=== PATIENT | female | born 1975 | race Two or more races ===

== ENCOUNTER 2024-05-19 07:47 | Emergency (ER) | payer MEDICAID, SELFPAY ==
--- NOTE | 2024-05-19 07:55 | PD.EDANX ---
ED Anxiety RME/HPI General Chief Complaint: Anxiety Stated Complaint: Feeling anxious, depressed Time Seen by Provider: 05/19/24 07:49 Arrival date/time: 05/19/24 07:47 RME / HPI RME / HPI narrative: This section includes all my notes and documentations, including HPI, PE, MDM, Procedure Notes, and PLAN. Rajendra Pro MD HPI: 48 year old female with history of mental health hospitalization due to psychosis in 2016, diagnosed with being on the schizophrenia spectrum , bipolar disorder, anxiety, PTSD presents to the ED for evaluation of feeling anxious. States she feels the psychotic break coming although not quite there yet. States she has had increased stress, anxiety, and on occasional start of delusions although unable to describe more details. Denies suicidal or homicidal ideations or hallucinations. Not currently taking prescription medications, for many years. Does not wish inpatient treatment or emergency usp. Requests prescriptions for antipsychotic and anxiety medications to prevent psychosis she had and helped many years ago. No other complaints reported. ROS: Respiratory: negative except as documented in HPI. Gastrointestinal: negative except as documented in HPI. Genitourinary: negative except as documented in HPI. Musculoskeletal: negative except as documented in HPI. Skin: negative except as documented in HPI. Neurological: negative except as documented in HPI. Physical Exam: General: Alert and oriented. No acute distress. Eyes: Conjunctivae and lids clear. ENT: No nasal congestion. Neck: Supple. Lungs: No respiratory distress. Skin: Warm and dry. Neuro: Alert and oriented X 3. Will prescribe Haldol and Xanax until she can see her private doctors. Patient does not meet the criteria for emergency usp. Based on my best medical judgment, made decision no further evaluation or treatment indicated at this time. Patient understands and agrees to the discharge instructions customized and printed, see below. Discharge Instructions from Dr. Pro: 1. As you requested, we will try to help you prevent acute psychosis you experienced in 2016. 2. You don't meet the criteria for emergency usp in psychiatric unit against your will.? Because you have no thoughts of hurting yourself or others.? And there are no signs of acute psychosis (loss of touch with reality) which can potentially be harmful to you and others at this moment today. 3. Since you requested prescriptions for anxiety and psychosis which helped you in 2016, you are prescribed Haldol and Xanax. 4. See a private doctor on 05/20/2024 for recheck and further care. Ask to help you stay healthy both physically and mentally.? And help to receive all services available to you, including referral to see mental health specialists. 5. Seek immediate medical care (you can call 911 any time) with thoughts of hurting yourself or similar delusions you had when he had psychosis in 2016 or with any concerns. Related Data Home Medications ?Medication ?Instructions ?Recorded ?Confirmed carvedilol 6.25 mg tablet 6.25 mg PO BID 01/28/23 01/28/23 gabapentin 600 mg tablet 600 mg PO TID PRN Pain 01/28/23 01/28/23 tapinarof 1 % topical cream (Vtama) 1 applic topical QDAY 01/28/23 01/28/23 venlafaxine 25 mg tablet 25 mg PO QDAY 01/28/23 01/28/23 Previous Rx's ?Medication ?Instructions ?Recorded alprazolam 0.5 mg tablet (Xanax) 0.5 mg PO BID PRN anxiety #10 tabs 05/19/24 haloperidol 5 mg tablet 5 mg PO .bedtime #30 tabs 05/19/24 Allergies Allergy/AdvReac Type Severity Reaction Status Date / Time cefaclor Allergy Intermediate Hives Verified 06/20/22 22:25 Erythromycin Lactobionate Allergy Mild STOMACH Verified 06/20/22 22:25 UPSET metoclopramide [From Reglan] Allergy Agitated Verified 06/19/22 17:28 steroids Allergy Unknown Irritable Uncoded 06/19/22 17:28 Review of Systems Review of Systems Systems Reviewed: All systems reviewed, normal except as documented Past Medical History Past Medical History RESPIRATORY: Positive Pneumonia REPRODUCTIVE: Positive Previous Pregnancies MUSCULOSKELETAL: Positive Musculoskeletal Disorders and Arthritis PSYCHO/SOCIAL: Positive Psychiatric Problems (May 2016 brief psychotic break.), Bipolar Disorder and Anxiety OTHER HISTORY: Positive Hospitalization and Autoimmune Disease (Psoriasis) Surgical History SURGICAL: Positive Section (x2) Social History SMOKING STATUS: Former smoker SUBSTANCE USE: does not use ED Exam Narrative Physical exam: As noted in HPI Course Quality Measures none Anxiety MDM Narrative MDM Narrative: I, Pascale Levy, am scribing for and in the presence of Dr. Pro. Patient data External records reviewed:: [facility] previous records (I reviewed admission from 01/28/2023 through 01/29/2023 for alcohol abuse ) Clinical information provided by:: patient Social determinants that could affect healthcare access:: mental health Patient has the following chronic illnesses:: mental health hospitalization in 2016, diagnosed with being on the schizophrenia spectrum , bipolar disorder, anxiety, PTSD How is presenting disease/condition affected by chronic disease/condition?: exacerbated by Evaluation data The following diagnostics were reviewed and interpreted by me:: other (specify) (None ) Lab and/or radiology exams considered but not ordered:: None Interpretation Summary: N/A Medications / Prescriptions Medications or Prescriptions considered but not ordered:: None Medication administrations:: None Consultations Consultation(s) initiated? (list below): No Diagnosis Differential diagnosis anxiety: panic disorder, acute anxiety and other (PTSD) Most likely diagnosis given after review of the tests above:: Anxiety Admission Indicated Admission indicated?: not indicated Admission Request Was there a request for admission?: No Disposition Plan Disposition Plan: Discharge Discharge Attestation Discharge Attestation: The patient and all family members were given an opportunity to ask questions and understood the discharge instructions. Discharge instructions specifically effects, indications for sooner follow up or return to the emergency department, and the expected course of current diagnosis. Patient condition: Stable Discharge Plan Plan Patient Disposition: HOME (Self Care) Prescriptions/Referrals Prescriptions/Med Rec: New haloperidol 5 mg tablet 5 mg PO .bedtime Qty: 30 0RF alprazolam [Xanax] 0.5 mg tablet 0.5 mg PO BID PRN (Reason: anxiety) Qty: 10 0RF No Action carvedilol 6.25 mg Tablet 6.25 mg PO BID Rx Instructions: must administer with a meal/food gabapentin 600 mg Tablet 600 mg PO TID PRN (Reason: Pain) venlafaxine 25 mg Tablet 25 mg PO QDAY Vtama 1 % Cream 1 applic TOPICAL QDAY Problem List Clinical Impression: Anxiety Patient/Caregiver Discharge Instructions Discharge Activity: activity as tolerated Education Materials: ED Anxiety Reaction, ED Psychosis Additional Instructions: Discharge Instructions from Dr. Pro: 1. As you requested, we will try to help you prevent acute psychosis you experienced in 2016. 2. You don't meet the criteria for emergency usp in psychiatric unit against your will.? Because you have no thoughts of hurting yourself or others.? And there are no signs of acute psychosis (loss of touch with reality) which can potentially be harmful to you and others at this moment today. 3. Since you requested prescriptions for anxiety and psychosis which helped you in 2016, you are prescribed Haldol and Xanax. 4. See a private doctor on 05/20/2024 for recheck and further care. Ask to help you stay healthy both physically and mentally.? And help to receive all services available to you, including referral to see mental health specialists. 5. Seek immediate medical care (you can call 911 any time) with thoughts of hurting yourself or similar delusions you had when he had psychosis in 2016 or with any concerns. Print Language: Kinyarwanda Stand Alone Forms: Leida Award Info., Patient Portal Info Letter
[2024-05-19 08:17] VITALS: BP 133/81; PULSE 82; RESP 19; TEMP 36.8; O2SAT 95; BMI 35.2
== END 2024-05-19 08:27 | disposition home or self-care (01) ==
LOC: SERX 08:22
PROVIDERS: Emergency Provider Emergency Medicine; PCP Physician Assistant
DX: F41.9 Anxiety disorder, unspecified (principal); F31.9 Bipolar disorder, unspecified; F20.9 Schizophrenia, unspecified; F43.10 Post-traumatic stress disorder, unspecified; Z87.891 Personal history of nicotine dependence
CPT/HCPCS: 99281

== ENCOUNTER 2024-11-12 15:58 | Emergency (ER) | payer MEDICAID, SELFPAY ==
[2024-11-12 16:01] VITALS: BP 136/95; PULSE 105; RESP 16; TEMP 37.1; O2SAT 94
[2024-11-12 16:02] VITALS: BMI 35.4
[2024-11-12 16:56] VITALS: BP 138/88; PULSE 100; RESP 20; TEMP 37.2; O2SAT 95
--- NOTE | 2024-11-12 17:07 | PD.EDRME ---
Rapid Medical Screening Exam E Arrival date/time: 11/12/24 15:58 This is a 48-year-old female that comes into the emergency room with complaints of a possible UTI. Patient has had dysuria, urinary frequency. Patient states symptoms have been going on for the last 5 to 7 days. Patient also has a history of bipolar disorder. Patient states that she is also in opiate withdrawal. Patient states that she has not had her methadone in the last 2 weeks. Patient states she has a runny nose and feeling irritable. Patient states that there was some miscommunication with her insurance and she has not been able to get it. I have greeted and performed a focused initial assessment of this patient. Initial appropriate labs ordered at this time. A comprehensive ED assessment and evaluation of the patient and analysis of all test and completion of medical decision making process will be conducted by additional ED provider. Time Seen by Provider: 11/12/24 16:42 Vital signs: Vital Signs Temperature 98.8 F 11/12/24 16:01 Pulse Rate 105 H 11/12/24 16:01 Respiratory Rate 16 11/12/24 16:01 Blood Pressure 136/95 H 11/12/24 16:01 Pulse Oximetry (%) 94 L 11/12/24 16:01 Oxygen Delivery Method Room Air 11/12/24 16:01
[2024-11-12 17:23] LABS: Collection Type, Urine Voided
[2024-11-12 17:38] LABS: Bacteria,Urine Rare; Bilirubin,Urine Negative (Negative); Blood,Urine Negative (Negative); Clarity,Urine Clear (Clear/Hazy); Culture Indicated,Urine Not Indicated; Glucose, Urine Negative (Negative); HCG Qualitative,Urine Negative; Ketones,Urine Negative (Negative); Leukocyte Esterase,Urine Negative (Negative); Nitrite,Urine Negative (Negative); PH,Urine 6.5 (5.0-7.0); Protein,Urine Negative (Neg - Trace); RBC,Urine 1 /hpf (0-3); Specific Gravity,Urine 1.006 (1.001-1.035); Squamous Epithelial Cell,Urine 3 /hpf (0-5); Urobilinogen,Urine Negative mg/dL (0.0-1.0); WBC,Urine 3 /hpf (0-5)
[2024-11-12 17:41] LABS: Color,Urine Lt-Yellow (Lt Yel-Yel)
--- NOTE | 2024-11-12 18:59 | PD.EDADULT ---
ED General RME/HPI General Stated complaint: UTI, NAUSEA, METHADONE WITHDRAWL Time Seen by Provider: 11/12/24 16:42 Arrival date/time: 11/12/24 15:58 RME / HPI RME / HPI narrative: 11/12/24 15:58 This is a 48-year-old female that comes into the emergency room with complaints of a possible UTI. Patient has had dysuria, urinary frequency. Patient states symptoms have been going on for the last 5 to 7 days. Patient also has a history of bipolar disorder. Patient states that she is also in opiate withdrawal. Patient states that she has not had her methadone in the last 2 weeks. Patient states she has a runny nose and feeling irritable. Patient states that there was some miscommunication with her insurance and she has not been able to get it. I have greeted and performed a focused initial assessment of this patient. Initial appropriate labs ordered at this time. A comprehensive ED assessment and evaluation of the patient and analysis of all test and completion of medical decision making process will be conducted by additional ED provider. Dr. Kim?s Main ED Evaluation: 48yo female with a history of psoriatic arthritis presents to the ED for complaints of UTI and methadone withdrawal . Patient states she's had dysuria and frequency for the last 5-6 days and was unable to make an appointment with her PCP at [facility] due to him being out of the office. Patient subsequently complains of being in methadone withdrawal. She states she ran out of her prescribed methadone 60mg 6 days ago, reporting she was unable to get a refill from the clinic due to having insurance problems and resorted to buying fentanyl on the street. Patient states she has not used fentanyl in 72 hours and came here seeking help regarding her methadone. Patient reports having nausea, diarrhea, body aches, feeling anxious, and extreme restlessness. Patient denies any vomiting, fever, chills or any other associated symptoms. Related Data Home Medications ?Medication ?Instructions ?Recorded ?Confirmed carvedilol 6.25 mg tablet 6.25 mg PO BID 01/28/23 01/28/23 gabapentin 600 mg tablet 600 mg PO TID PRN Pain 01/28/23 01/28/23 tapinarof 1 % topical cream (Vtama) 1 applic topical QDAY 01/28/23 01/28/23 venlafaxine 25 mg tablet 25 mg PO QDAY 01/28/23 01/28/23 Previous Rx's ?Medication ?Instructions ?Recorded alprazolam 0.5 mg tablet (Xanax) 0.5 mg PO BID PRN anxiety #10 tabs 05/19/24 haloperidol 5 mg tablet 5 mg PO .bedtime #30 tabs 05/19/24 doxycycline monohydrate 100 mg 100 mg PO BID Urinary tract 11/12/24 capsule infection 5 days #10 caps methadone 10 mg/mL oral syringe 60 mg (6 mL) PO QDAY Chronic pain 11/12/24 (FOR ORAL USE ONLY) 3 days #18 mL phenazopyridine 100 mg tablet 100 mg PO TID PRN pain 6 doses #6 11/12/24 tabs Allergies Allergy/AdvReac Type Severity Reaction Status Date / Time cefaclor Allergy Intermediate Hives Verified 11/12/24 16:13 Erythromycin Lactobionate Allergy Mild STOMACH Verified 11/12/24 16:13 UPSET metoclopramide (From Reglan) Allergy Agitated Verified 06/19/22 17:28 steroids Allergy Unknown Irritable Uncoded 11/12/24 16:13 Review of Systems Review of Systems Systems Reviewed: All systems reviewed, normal except as documented ED Exam Narrative Physical exam: GENERAL APPEARANCE: alert and oriented x 4, well-developed, well-nourished,appears uncomfortable VITALS: All vitals were reviewed and the pulse ox is 95% on room air, which is normal according to my interpretation. HEENT: normocephalic, atraumatic NECK: supple LUNGS: no respiratory distress, normal effort HEART: good peripheral perfusion ABDOMEN: non distended EXTREMITIES: atraumatic NEUROLOGIC: awake; alert and oriented x4; cranial nerves II-XII grossly intact PSYCHIATRIC: anxious mood and affect SKIN: warm, dry, normal color; no rashes Course Quality Measures none Orders Category Date Time Status HCG Qualitative,Urine Stat Lab 11/12/24 17:10 Completed Urinalysis, C/S if Indicated Stat Lab 11/12/24 17:10 Completed Doxycycline [Vibramycin] Med 11/12/24 19:04 Discontinued 100 mg PO X1 ONE Methadone Med 11/12/24 19:04 Once 60 mg PO X1 ONE Phenazopyridine HCl [Pyridium] Med 11/12/24 18:59 Discontinued 100 mg PO X1 ONE Vital Signs Vital signs: Vital Signs Temperature 98.8 F 11/12/24 16:01 Pulse Rate 105 H 11/12/24 16:01 Respiratory Rate 16 11/12/24 16:01 Blood Pressure 136/95 H 11/12/24 16:01 Pulse Oximetry (%) 94 L 11/12/24 16:01 Oxygen Delivery Method Room Air 11/12/24 16:01 Discharge Plan Plan Patient Disposition: HOME (Self Care) Discharge Disposition comment: Stable for discharge home Patient condition on transfer: Stable Prescriptions/Referrals Prescriptions/Med Rec: New methadone 10 mg/mL syringe 60 mg PO QDAY MDD 60 mg 3 Days Qty: 18 0RF Rx Instructions: Patient takes 60 mg of methadone daily. She has an insurance problem and now is unable to obtain it. phenazopyridine 100 mg tablet 100 mg PO TID MDD 3 tabs PRN (Reason: pain) Qty: 6 0RF doxycycline monohydrate 100 mg capsule 100 mg PO BID 5 Days Qty: 10 0RF No Action haloperidol 5 mg tablet 5 mg PO .bedtime Qty: 30 0RF alprazolam [Xanax] 0.5 mg tablet 0.5 mg PO BID PRN (Reason: anxiety) Qty: 10 0RF carvedilol 6.25 mg Tablet 6.25 mg PO BID Rx Instructions: must administer with a meal/food gabapentin 600 mg Tablet 600 mg PO TID PRN (Reason: Pain) venlafaxine 25 mg Tablet 25 mg PO QDAY Vtama 1 % Cream 1 applic TOPICAL QDAY Referrals: Hebert Nguyen PA-C [Primary Care Provider] - In 1 week Problem List Clinical Impression: Opiate withdrawal, Urinary tract infection Patient/Caregiver Discharge Instructions Discharge Activity: activity as tolerated Education Materials: Urinary Tract Infections in Women, ED Opioid Withdrawal Additional Instructions: Please return to the emergency department if you have any worsening or any further medical problems and we will help you. Otherwise you should follow-up with your primary care doctor within the next several days. There are medications waiting for you at your pharmacy. Please take these as directed. I have given you 3 days worth of your normal methadone dose. Also there is Pyridium and an antibiotic for your urinary tract infection. Print Language: Italian Stand Alone Forms: Leida Award Info., Patient Portal Info Letter MDM Narrative MDM hospital course (for use when minimal MDM required): Scribe Attestation: 11/12/24 Shahida Kerr am scribing for and in the presence of Dr. Kim. Clinical Information Provided by: patient Medical Records reviewed [facility] (Per chart review, patient was seen here on 05/19/24 for anxiety.) Meds/Rx considered, not ordered None Labs/Rad/Tests considered, not ordered None Chronic Illness/Social Conditions Explain: History of psoriatic arthritis Labs Labs: interpreted by ca Lab(s) Interpretation(s): UA shows rare bacteria, HCG is negative. Imaging Imaging interpretation: none Medication Administration(s) Medication Administration History Methadone HCl (Methadone Hcl 10 Mg Tablet) 60 mg PO X1 ONE Stop: 11/12/24 19:05 Discontinued Medications Doxycycline Hyclate (Doxycycline 100 Mg Tablet) 100 mg PO X1 ONE Stop: 11/12/24 19:05 Phenazopyridine HCl (Phenazopyridine Hcl 100 Mg Tablet) 100 mg PO X1 ONE Stop: 11/12/24 19:00 see above Diagnosis Differential Diagnosis ED Complaint MDM: viral syndrome, opioid withdrawal, malingering
[2024-11-12 19:04] VITALS: BP 136/94; BP 143/104; PULSE 100; RESP 20; TEMP 37.3; O2SAT 100
[2024-11-12] MEDS: METHADONE HCL 10 MG TABLET 60 MG PO (19:26)
[2024-11-12] MEDS: PHENAZOPYRIDINE HCL 100 MG TABLET PO (19:26)
[2024-11-12] MEDS: DOXYCYCLINE 100 MG TABLET PO (19:26)
[2024-11-12 19:56] VITALS: RESP 18
== END 2024-11-12 20:20 | disposition home or self-care (01) ==
PROVIDERS: Nurse Practitioner Family; Emergency Provider Emergency Medicine; PCP Physician Assistant
DX: F11.23 Opioid dependence with withdrawal (principal); N39.0 Urinary tract infection, site not specified; F31.9 Bipolar disorder, unspecified
CPT/HCPCS: 81001; 81025; 99283; A9270

== ENCOUNTER 2024-11-13 20:16 | Emergency (ER) | payer MEDICAID, SELFPAY ==
[2024-11-13 20:17] VITALS: BMI 35.4
--- NOTE | 2024-11-13 20:23 | PD.EDADULT ---
ED General RME/HPI General Chief complaint: General Adult/Misc Complain Stated complaint: NEEDS METHADONE DOSE Time Seen by Provider: 11/13/24 20:22 Arrival date/time: 11/13/24 20:16 RME / HPI RME / HPI narrative: Dr. Kim?s Main ED Evaluation: 48yo female presents to the ED requesting her daily dose of methadone. Patient was seen here in the ED yesterday for methadone withdrawal and was sent a prescription to her pharmacy, but the pharmacy did not have the medication in stock, so she came in to the ED. Patient is still attempting to fix her insurance problems so she can be seen at her methadone clinic. Patient denies any N/V, fever, chills or any other associated symptoms. Related Data Home Medications ?Medication ?Instructions ?Recorded ?Confirmed carvedilol 6.25 mg tablet 6.25 mg PO BID 01/28/23 01/28/23 gabapentin 600 mg tablet 600 mg PO TID PRN Pain 01/28/23 01/28/23 tapinarof 1 % topical cream (Vtama) 1 applic topical QDAY 01/28/23 01/28/23 venlafaxine 25 mg tablet 25 mg PO QDAY 01/28/23 01/28/23 Previous Rx's ?Medication ?Instructions ?Recorded alprazolam 0.5 mg tablet (Xanax) 0.5 mg PO BID PRN anxiety #10 tabs 05/19/24 haloperidol 5 mg tablet 5 mg PO .bedtime #30 tabs 05/19/24 doxycycline monohydrate 100 mg 100 mg PO BID Urinary tract 11/12/24 capsule infection 5 days #10 caps methadone 10 mg/mL oral syringe 60 mg (6 mL) PO QDAY Chronic pain 11/12/24 (FOR ORAL USE ONLY) 3 days #18 mL phenazopyridine 100 mg tablet 100 mg PO TID PRN pain 6 doses #6 11/12/24 tabs Allergies Allergy/AdvReac Type Severity Reaction Status Date / Time cefaclor Allergy Intermediate Hives Verified 11/13/24 20:17 Erythromycin Lactobionate Allergy Mild STOMACH Verified 11/13/24 20:17 UPSET metoclopramide (From Reglan) Allergy Agitated Verified 11/13/24 20:17 steroids Allergy Unknown Irritable Uncoded 11/13/24 20:17 Review of Systems Review of Systems Systems Reviewed: All systems reviewed, normal except as documented ED Exam Narrative Physical exam: GENERAL APPEARANCE: alert and oriented x 4, well-developed, well-nourished, no acute distress VITALS: All vitals were reviewed and the pulse ox is 95% on room air, which is normal according to my interpretation. HEENT: normocephalic, atraumatic NECK: supple LUNGS: no respiratory distress, normal effort HEART: good peripheral perfusion ABDOMEN: non distended EXTREMITIES: atraumatic NEUROLOGIC: awake; alert and oriented x4; cranial nerves II-XII grossly intact PSYCHIATRIC: appropriate mood and affect SKIN: warm, dry, normal color; no rashes Course Quality Measures none Orders Category Date Time Status Miscellaneous Nursing Order NOW Care 11/13/24 20:24 Completed Methadone Med 11/13/24 20:23 Discontinued 60 mg PO X1 ONE Vital Signs Vital signs: Vital Signs Temperature 98.9 F 11/13/24 20:35 Pulse Rate 91 11/13/24 20:35 Respiratory Rate 18 11/13/24 20:35 Blood Pressure 115/82 11/13/24 20:35 Pulse Oximetry (%) 95 11/13/24 20:35 Oxygen Delivery Method Room Air 11/13/24 20:35 Discharge Plan Plan Patient Disposition: HOME (Self Care) Discharge Disposition comment: Stable for discharge home Patient condition on transfer: Stable Prescriptions/Referrals Prescriptions/Med Rec: No Action haloperidol 5 mg tablet 5 mg PO .bedtime Qty: 30 0RF alprazolam [Xanax] 0.5 mg tablet 0.5 mg PO BID PRN (Reason: anxiety) Qty: 10 0RF methadone 10 mg/mL syringe 60 mg PO QDAY MDD 60 mg 3 Days Qty: 18 0RF Rx Instructions: Patient takes 60 mg of methadone daily. She has an insurance problem and now is unable to obtain it. phenazopyridine 100 mg tablet 100 mg PO TID MDD 3 tabs PRN (Reason: pain) Qty: 6 0RF doxycycline monohydrate 100 mg capsule 100 mg PO BID 5 Days Qty: 10 0RF carvedilol 6.25 mg Tablet 6.25 mg PO BID Rx Instructions: must administer with a meal/food gabapentin 600 mg Tablet 600 mg PO TID PRN (Reason: Pain) venlafaxine 25 mg Tablet 25 mg PO QDAY Vtama 1 % Cream 1 applic TOPICAL QDAY Problem List Clinical Impression: Opiate withdrawal Patient/Caregiver Discharge Instructions Discharge Activity: activity as tolerated Education Materials: ED Opioid Withdrawal Additional Instructions: Please return to the emergency department if you have any worsening or any further medical problems and we will help you. Otherwise you should follow-up with your primary care doctor within the next several days If you are unable to obtain your normal dose of methadone tomorrow, 11/14/2024, you should return to this emergency department and we will help you. Print Language: Sao [place]omean Stand Alone Forms: Leida Award Info., Patient Portal Info Letter MDM Narrative MDM hospital course (for use when minimal MDM required): Scribe Attestation: 11/13/24 - Johnnie, Shahida Brar am scribing for and in the presence of Dr. Kim. I wrote a prescription for methadone to the patient's pharmacy, but patient endorsed that they do not carry the form of methadone that was prescribed. I ordered for her tor receive a dose here. Clinical Information Provided by: patient Medical Records reviewed [facility] (Per chart review, patient was seen here yesterday for opiate withdrawal.) Meds/Rx considered, not ordered None Labs/Rad/Tests considered, not ordered None Chronic Illness/Social Conditions Explain: History of psoriatic arthritis EKG EKG not done Labs Labs: none Imaging Imaging interpretation: none Medication Administration(s) Medication Administration History Discontinued Medications Methadone HCl (Methadone Hcl 10 Mg Tablet) 60 mg PO X1 ONE Stop: 11/13/24 20:24 Last Admin: 11/13/24 20:34 Dose: 60 mg Documented By: CVL see above Diagnosis Differential Diagnosis ED Complaint MDM: viral syndrome, opioid withdrawal, malingering
[2024-11-13] MEDS: METHADONE HCL 10 MG TABLET 60 MG PO (20:34)
[2024-11-13 20:35] VITALS: BP 115/82; PULSE 91; RESP 18; TEMP 37.2; O2SAT 95
[2024-11-13 20:54] VITALS: RESP 18
== END 2024-11-13 20:55 | disposition home or self-care (01) ==
PROVIDERS: Emergency Provider Emergency Medicine; PCP Physician Assistant
DX: F11.23 Opioid dependence with withdrawal (principal); L40.50 Arthropathic psoriasis, unspecified
CPT/HCPCS: 99282; A9270

== ENCOUNTER 2024-12-11 03:51 | Emergency (ER) | payer MEDICAID, SELFPAY ==
[2024-12-11] VITALS (10 sets, daily range): BP systolic 123–158; BP diastolic 78–113; PULSE 70–112; RESP 16–22; TEMP 37.2; O2SAT 95–99; BMI 34.3
--- NOTE | 2024-12-11 03:54 | EKG_ITS ---
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
--- NOTE | 2024-12-11 04:13 | EDNOTE_ITS ---
ED Chest Pain RME/HPI General Chief Complaint: Chest Pain Stated Complaint: CHEST HEAVINESS, SOB, DEHYDRATED Time Seen by Provider: 12/11/24 04:18 Arrival date/time: 12/11/24 03:51 RME / HPI RME / HPI narrative: This section includes all my notes and documentations, including HPI, PE, and ED course. Rajendra Pro MD HPI: 48 y/o female with Hx of substance abuse, Arthritis, Bipolar Disorder and Anxiety presents c/o chest pain, shortness of breath and dehydration s/p smoking crystal meth and using fentanyl x approximately 12 hours ago. Denies cough or fever. No other complaints. ROS: All negative except as documented in HPI. Physical Exam: General:? Alert and oriented.? No acute distress.??High BP noted. Eyes:? Conjunctivae and lids clear.? EOMI.? PERRL. ENT:? No nasal congestion.? Neck:? Supple.? No carotid bruit.? No JVD.?? Heart: Sinus tachycardia noted. Lungs:? No respiratory distress.? Good air movement.? No rhonchi, wheezing, rales.?? Abdomen:? Soft and nontender.? Legs:? No clubbing, cyanosis, edema.? Skin:? Warm and dry.?? Neuro:? Alert and oriented X 3.? Cranial Nerves II-XII grossly intact.? No peripheral motor deficits. I reviewed all diagnostic test results: My interpretation of the EKG is: Sinus tachycardia (107 bpm) with nonspecific ST-T changes. Blood tests remarkable for negative troponin, K 3.1, and Mg 1.4. UDS positive for fentanyl and methamphetamine. At this point, diagnoses include: Chest pain due to drugs, hypokalemia, and hypomagnesemia. Treatment here included: IV fluid, oral metoprolol 100 mg, oral KCl 40 mEq, and IV/p.o. magnesium. Significant improvement noted. Recommended more outpatient care. Based on my best medical judgment, made decision no further evaluation or treatment indicated at this time. Patient understands and agrees to the discharge instructions customized and printed, see below. Discharge instructions from Dr. Pro: 1. After extensive evaluation, there is no life-threatening condition.? Such as heart attack. 2. Your symptoms were due to drugs. 3. Avoid all drugs. Which can be fatal, including from heart attack. 4. See a private doctor on 12/12/2024 for recheck and further care. Ask to review all test results and official radiology reports, to make sure you receive all necessary follow-ups and monitoring. To make sure there is no serious underlying heart condition, ask to help you get more tests for your heart that cannot be done here in the ER.? Such as Holter Monitor (cardiac monitoring at home from a day to even a month), heart stress test (on treadmill or with medication), echocardiogram (imaging of your heart st ructures), heart catherization (checking for blockages in your heart arteries), and a referral to see a [employer]. 5. Seek immediate medical care with worsening or with any concerns.?? Rajendra Pro MD Related Data Home Medications ?Medication ?Instructions ?Recorded ?Confirmed carvedilol 6.25 mg tablet 6.25 mg PO BID 01/28/23 0808/21 gabapentin 600 mg tablet 600 mg PO TID PRN Pain 01/2801/28/23 tapinarof 1 % topical cream (Vtama) 1 applic topical Q DAY 01/28/23 01/28/23 venlafaxine 25 mg tablet 25 mg PO QDAY 01/28/2301/28 Previous Rx's ?Medication ?Instructions ?Recorded alprazolam 0.5 mg tablet (Xanax) 0.5 mg PO BID PRN anx iety #10 tabs 05/19/24 haloperidol 5 mg tablet 5 mg PO .bedtime #30 tabs phenazopyridine 100 mg tablet 100 mg PO TID PRN pain 6 doses #6 11/12/24 tabs Allergies Allergy/AdvReac Type Severity Reaction Status Date / Time cefaclor Allergy Intermediate Hives Verified 12/11/24 03:52 Erythromycin Lactobionate Allergy Mild STOMACH Verified 12/11/24 03:52 UPSET metoclopramide (From Reglan) Allergy Agitated Verified 12/11/24 03:52 steroids Allergy Unknown Irritable Uncoded 12/11/24 03:52 Review of Systems Review of Systems Systems Reviewed: All systems reviewed, normal except as documented Past Medical History Past Medical History RESPIRATORY: Positive Pneumonia MUSCULOSKELETAL: Positive Musculoskeletal Disorders and Arthritis PSYCHO/SOCIAL: Positive Psychiatric Problems, Recreational Drug Use (Methamphetamine, Opiates), Bipolar Disorder and Anxiety OTHER HISTORY: Positive Hospitalization and Autoimmune Disease Surgical History SURGICAL: Positive Section Social History SMOKING STATUS: Current some day smoker SUBSTANCE USE: opiates and methamphetamine ED Exam Narrative Physical exam: Refer to [facility] Course Quality Measures none Orders Category Date Time Status EKG (ED ONLY) *Do not use* NOW Care 12/11/24 03:55 Completed Saline [Insert IV] NOW Care 12/11/24 04:07 Completed EKG (ED Only) Stat Exams 12/11/24 03:54 Draft Bilirubin,Direct Stat Lab 12/11/24 04:19 Completed CBC Stat Lab 12/11/24 04:19 Completed CMP [Comprehensive Metabolic Panel] Stat Lab 12/11/24 04:19 Completed Drug Screen,Urine Stat Lab 12/11/24 05:40 Completed Magnesium Stat Lab 12/11/24 04:19 Completed Troponin I Stat Lab 12/11/24 04:19 Completed KCL 10% Liq UDC 15 ML Med 12/11/24 05:05 Discontinued 40 meq PO X1 ONE Magnesium Oxide [Mag-Ox 400] Med 12/11/24 05:43 Discontinued 400 mg PO X1 ONE Magnesium Sulf 50% Inj (gm) Med 12/11/24 05:05 Discontinued 2 gm IM X1 ONE Magnesium Sulfate 1 gm Ivpb [Magnesium Sulfate Ivpb] Med 12/11/24 05:43 Discontinued 1 gm in 100 ml IV X1 Metoprolol Tartrate [Lopressor] Med 12/11/24 04:07 Discontinued 100 mg PO X1 ONE Sodium Chloride 0.9% 1000 ml [Ns] 1,000 ml Med 12/11/24 04:07 Discontinued IV 999 mls/hr Vital Signs Vital signs: Vital Signs Temperature 98.9 F 12/11/24 04:07 Pulse Rate 112 H 12/11/24 04:07 Respiratory Rate 22 H 12/11/24 04:07 Blood Pressure 158/113 H 12/11/24 04:07 Pulse Oximetry (%) 96 12/11/24 04:07 Oxygen Delivery Method Room Air 12/11/24 04:07 Chest Pain MDM Narrative MDM Narrative:: Scribe Attestation: Karley Blair am scribing for and in the presence of Dr. Pro. Provider Notation: Although this document has been carefully reviewed, there may still be some phonetic and other typographical errors.? These errors are purely grammatical due to imperfections in the software program and should not be construed in any way to? compromise the substance of the patient's medical care during this visit. 48 y/o female with Hx of Opiate and Methamphetamine use, Arthritis, Bipolar Disorder and Anxiety presents c/o chest pain, shortness of breath and dehydration s/p smoking crystal meth x approximately 12 hours ago. Denies cough or fever. No other complaints. Patient data External records reviewed:: [facility] previous records (Reviewed prior ED records from 11/13/24. Patient was seen for Opiate withdrawal.) Clinical information provided by:: patient Social determinants that could affect healthcare access:: substance use (Opiates) Patient has the following chronic illnesses:: Recreational drug use, Arthritis, Bipolar Disorder and Anxiety How is presenting disease/condition affected by chronic disease/condition?: exacerbated by Evaluation data The following diagnostics were reviewed and interpreted by me:: lab results and EKG tracing(s) (My interpretation of the EKG is: Sinus tachycardia (107 bpm) with nonspecific ST-T changes. Rajendra Pro MD) Lab and/or radiology exams considered but not ordered:: None Interpretation Summary: I reviewed all diagnostic test results: My interpretation of the EKG is: Sinus tachycardia (107 bpm) with nonspecific ST-T changes. Blood tests remarkable for negative troponin, K 3.1, and Mg 1.4. UDS positive for fentanyl and methamphetamine. Medications / Prescriptions Medications or Prescriptions considered but not ordered:: None Medication administrations:: Medication Administration History Discontinued Medications Sodium Chloride (Ns) 1,000 mls @ 999 mls/hr IV .Q1H1M ONE Stop: 12/11/24 05:07 Last Infusion: 12/11/24 05:43 Dose: Infused Documented By: Admin: 12/11/24 04:17 Dose: 999 mls/hr Documented By: EE Magnesium Sulfate/Dextrose (Magnesium Sulfate Ivpb) 1 gm in 100 mls @ 100 mls/hr IV X1 ONE Stop: 12/11/24 06:42 Last Infusion: 12/11/24 07:36 Dose: Infused Documented By: Admin: 12/11/24 06:09 Dose: 100 mls/hr Documented By: WO Magnesium Oxide (Magnesium Oxide 400 Mg Tablet) 400 mg PO X1 ONE Stop: 12/11/24 05:44 Last Admin: 12/11/24 05:58 Dose: 400 mg Documented By: MONSTER Magnesium Sulfate (Magnesium Sulf Inj 0.5 Gm/Ml Vial 2 Ml) 2 gm IM X1 ONE Stop: 12/11/24 05:06 Last Admin: 12/11/24 05:49 Dose: Not Given Documented By: CAIN Non-Admin Reason: Cancelled by Provider Metoprolol Tartrate (Metoprolol Tartrate 25 Mg Tablet) 100 mg PO X1 ONE Stop: 12/11/24 04:08 Last Admin: 12/11/24 04:43 Dose: 100 mg Documented By: Potassium Chloride (Potassium Chloride 10% 20 Meq/15 Ml Udc) 40 meq PO X1 ONE Stop: 12/11/24 05:06 Last Admin: 12/11/24 05:36 Dose: 40 meq Documented By: CAIN Treatment here included: IV fluid, oral metoprolol 100 mg, oral KCl 40 mEq, and IV/p.o. magnesium. Consultations Consultation(s) initiated? (list below): No Diagnosis Chest Pain Differential Diagnosis: pneumothorax, stable angina, unstable angina pectoris, atypical chest pain, st elevation myocardial infarction, costoc hondritis and chest pain Most likely diagnosis given after review of the tests above:: At this point, diagnoses include: Chest pain due to drugs, hypokalemia, and hypomagnesemia. Admission Indicated Admission indicated?: not indicated Explain why admission is indicated or not indicated:: With significant improvement and no serious condition, there was no indication for admission. Admission Request Was there a request for admission?: No Disposition Plan Disposition Plan: Discharge Discharge Attestation Discharge Attestation: The patient and all family members were given an opportunity to ask questions and understood the discharge instructions. Discharge instructions specifically effects, indications for sooner follow up or return to the emergency department, and the expected course of current diagnosis. Patient condition: Stable Discharge Plan Plan Patient Disposition: HOME (Self Care) Prescriptions/Referrals Prescriptions/Med Rec: No Action haloperidol 5 mg tablet 5 mg PO .bedtime Qty: 30 0RF alprazolam [Xanax] 0.5 mg tablet 0.5 mg PO BID PRN (Reason: anxiety) Qty: 10 0RF phenazopyridine 100 mg tablet 100 mg PO TID MDD 3 tabs PRN (Reason: pain) Qty: 6 0RF carvedilol 6.25 mg Tablet 6.25 mg PO BID Rx Instructions: must administer with a meal/food gabapentin 600 mg Tablet 600 mg PO TID PRN (Reason: Pain) venlafaxine 25 mg Tablet 25 mg PO QDAY Vtama 1 % Cream 1 applic TOPICAL QDAY Referrals: Hebert Nguyen PA-C [Primary Care Provider] - In 1 week Problem List Clinical Impression: Chest pain Patient/Caregiver Discharge Instructions Education Materials: ED Chest Pain, Noncardiac, ED Drug Abuse Additional Instructions: Discharge instructions from Dr. Pro: 1. After extensive evaluation, there is no life-threatening condition.? Such as heart attack. 2. Your symptoms were due to drugs. 3. Avoid all drugs. Which can be fatal, including from heart attack. 4. See a private doctor on 12/12/2024 for recheck and further care. Ask to review all test results and official radiology reports, to make sure you receive all necessary follow-ups and monitoring. To make sure there is no serious underlying heart condition, ask to help you get more tests for your heart that cannot be done here in the ER.? Such as Holter Monitor (cardiac monitoring at home from a day to even a month), heart stress test (on treadmill or with medication), echocardiogram (imaging of your heart structures), heart catherization (checking for blockages in your heart arteries), and a referral to see a [employer]ing [employer] Feeder. 5. Seek immediate medical care with worsening or with any concerns.?? Print Language: [place] Stand Alone Forms: Leida Award Info., Patient Portal Info Letter
[2024-12-11] MEDS: SODIUM CHLORIDE 0.9% 1000 ML 1,000 ML 999 ML IV (04:17)
[2024-12-11 04:43] LABS: Basophils % (Auto) 0 % (0-2.5); Eosinophils % (Auto) 0 % (0-10); Hematocrit 43.2 % (36.0-46.0); Hemoglobin 14.3 g/dL (12.0-16.0); Immature Granulocytes % (Auto) 0 % (0-0); Immature Granulocytes Auto 0.03 Thou/mm3 (0.00-0.00); Lymphocytes # (Auto) 3.6 Thou/mm3 (1.0-4.8); Lymphocytes % (Auto) 24 % (10-50); Mean Corpuscular HGB Conc 33.1 g/dl (31.0-37.0); Mean Corpuscular Hemoglobin 28.2 pg (25.0-35.0); Mean Corpuscular Volume 85 fL (80-100); Monocytes # (Auto) 0.9 Thou/mm3 (0.0-0.8); Monocytes % (Auto) 6 % (0-12); Neutrophils # (Auto) 10.2 Thou/mm3 (1.8-7.7); Neutrophils % (Auto) 69 % (37-80); Nucleated Red Blood Cell % 0 /100 WBC (0); Platelet Count 401 Thou/mm3 (140-440); RDW Standard Deviation 47.1 fL (36.4-46.3); Red Blood Count 5.07 Miln/mm3 (4.00-5.20); White Blood Count 14.7 Thou/mm3 (3.6-11.0)
[2024-12-11] MEDS: METOPROLOL TARTRATE 25 MG TABLET 100 MG PO (04:43)
[2024-12-11 04:56] LABS: Alanine Aminotransferase 27 U/L (10-49); Albumin, Serum 5.1 gm/dL (3.5-5.0); Albumin/Globulin Ratio 1.7 (1.2-2.2); Alkaline Phosphatase 106 U/L (46-116); Anion Gap 13 (7-16); Aspartate Amino Transferase 29 U/L (0-34); BUN/Creatinine Ratio 18 Ratio (12-20); Bilirubin,Direct 0.3 mg/dL (0.0-0.3); Blood Urea Nitrogen 21 mg/dL (9-23); Calcium 9.6 mg/dL (8.3-10.6); Calcium (Corrected) 9.6 mg/dL (8.5-10.1); Carbon Dioxide 26.3 mMol/L (20.0-31.0); Chloride 98 mMol/L (98-107); Creatinine (Component) 1.2 mg/dL (0.6-1.3); Estimated Creatinine Clearance 63.9 mL/min (>60); Glucose 117 mg/dL (74-106); Magnesium 1.4 mg/dL (1.6-2.6); Osmolality,Calculated 277 (275-295); Potassium 3.1 mMol/L (3.4-5.1); Sodium 137 mMol/L (136-145); Total Protein 8.1 gm/dL (5.7-8.2); Troponin I < 0.020 ng/mL (0.0-0.045); eGFR 57 See Note
[2024-12-11] MEDS: POTASSIUM CHLORIDE 10% 20 MEQ/15 ML UDC 40 MEQ PO (05:36)
[2024-12-11] MEDS: MAGNESIUM OXIDE 400 MG TABLET PO (05:58)
[2024-12-11] MEDS: Magnesium Sulfate 1 gm Ivpb 1 GM/100 ML BAG IV (06:09)
[2024-12-11 06:33] LABS: Amphetamine/Methamp Scrn,U Positive (Negative); Barbiturate Screen,Urine Negative (Negative); Benzodiazepines Screen,Urine Negative (Negative); Benzoylecgonine Screen, Ur Negative (Negative); Fentanyl Screen,Urine Positive (Negative); Opiate Screen,Urine Negative (Negative); THC Screen,Urine Negative (Negative)
== END 2024-12-11 08:09 | disposition home or self-care (01) ==
PROVIDERS: Emergency Provider Emergency Medicine; PCP Physician Assistant
DX: R07.89 Other chest pain (principal); R00.0 Tachycardia, unspecified; F15.10 Other stimulant abuse, uncomplicated; F11.10 Opioid abuse, uncomplicated
CPT/HCPCS: 36415; 80053; 80307; 82248; 83735; 84484; 85025; 93005; 96361; 96365; 99284; J3475; J7030; A9270

== ENCOUNTER 2024-12-15 09:22 | Emergency (ER) | payer MEDICAID, SELFPAY ==
[2024-12-15 09:23] VITALS: BP 147/102; PULSE 103; PULSE 97; RESP 17; RESP 18; TEMP 37; O2SAT 97; O2SAT 99; BMI 34.3
[2024-12-15 10:29] LABS: Basophils % (Auto) 0 % (0-2.5); Eosinophils % (Auto) 0 % (0-10); Hematocrit 45.5 % (36.0-46.0); Hemoglobin 15.4 g/dL (12.0-16.0); Immature Granulocytes % (Auto) 0 % (0-0); Immature Granulocytes Auto 0.04 Thou/mm3 (0.00-0.00); Lymphocytes # (Auto) 2.7 Thou/mm3 (1.0-4.8); Lymphocytes % (Auto) 23 % (10-50); Mean Corpuscular HGB Conc 33.8 g/dl (31.0-37.0); Mean Corpuscular Hemoglobin 28.2 pg (25.0-35.0); Mean Corpuscular Volume 83 fL (80-100); Monocytes # (Auto) 0.5 Thou/mm3 (0.0-0.8); Monocytes % (Auto) 4 % (0-12); Neutrophils # (Auto) 8.6 Thou/mm3 (1.8-7.7); Neutrophils % (Auto) 73 % (37-80); Nucleated Red Blood Cell % 0 /100 WBC (0); Platelet Count 415 Thou/mm3 (140-440); RDW Standard Deviation 46.8 fL (36.4-46.3); Red Blood Count 5.46 Miln/mm3 (4.00-5.20); White Blood Count 11.8 Thou/mm3 (3.6-11.0)
[2024-12-15 10:46] LABS: Alanine Aminotransferase 42 U/L (10-49); Albumin, Serum 5.1 gm/dL (3.5-5.0); Albumin/Globulin Ratio 1.6 (1.2-2.2); Alcohol, Blood Medical 14.8 mg/dL (0-10.0); Alkaline Phosphatase 105 U/L (46-116); Anion Gap 12 (7-16); Aspartate Amino Transferase 36 U/L (0-34); BUN/Creatinine Ratio 11 Ratio (12-20); Bilirubin,Direct 0.2 mg/dL (0.0-0.3); Bilirubin,Total 0.4 mg/dL (0.3-1.2); Blood Urea Nitrogen 9 mg/dL (9-23); Calcium 9.5 mg/dL (8.3-10.6); Calcium (Corrected) 9.5 mg/dL (8.5-10.1); Carbon Dioxide 27.2 mMol/L (20.0-31.0); Chloride 103 mMol/L (98-107); Creatinine (Component) 0.8 mg/dL (0.6-1.3); Estimated Creatinine Clearance 95.9 mL/min (>60); Free T4 (Free Thyroxine) 1.49 ng/dL (0.89-1.76); Globulin 3.1 gm/dL (2.3-3.5); Glucose 97 mg/dL (74-106); Magnesium 1.5 mg/dL (1.6-2.6); Osmolality,Calculated 281 (275-295); Potassium 3.5 mMol/L (3.4-5.1); Sodium 142 mMol/L (136-145); Thyroid Stimulating Hormone 0.22 uIU/mL (0.55-4.78); Total Protein 8.2 gm/dL (5.7-8.2); eGFR > 60 See Note
[2024-12-15 11:24] LABS: Collection Type, Urine Clean Catch
[2024-12-15 11:37] LABS: Bacteria,Urine 2+; Bilirubin,Urine Negative (Negative); Blood,Urine Negative (Negative); Clarity,Urine Turbid (Clear/Hazy); Color,Urine Yellow (Lt Yel-Yel); Culture Indicated,Urine Contaminated; Glucose, Urine Negative (Negative); Ketones,Urine 1+ (Negative); Leukocyte Esterase,Urine Negative (Negative); Nitrite,Urine Negative (Negative); Protein,Urine 1+ (Neg - Trace); RBC,Urine 1 /hpf (0-3); Squamous Epithelial Cell,Urine 17 /hpf (0-5); Urobilinogen,Urine Negative mg/dL (0.0-1.0); WBC,Urine 3 /hpf (0-5)
[2024-12-15 11:47] LABS: HCG Qualitative,Urine Negative
--- NOTE | 2024-12-15 12:01 | PD.EDADDENDU ---
Emergency Room Addendum Addendum Narrative: When I looked for the patient to start my evaluation/treatment, I was told the patient eloped. Rajendra Pro MD
[2024-12-15 12:28] LABS: Amphetamine/Methamp Scrn,U Negative (Negative); Barbiturate Screen,Urine Negative (Negative); Benzodiazepines Screen,Urine Negative (Negative); Benzoylecgonine Screen, Ur Negative (Negative); Fentanyl Screen,Urine Positive (Negative); Opiate Screen,Urine Negative (Negative); THC Screen,Urine Negative (Negative)
== END 2024-12-15 11:25 | disposition left against medical advice (07) ==
PROVIDERS: Emergency Provider Emergency Medicine; PCP Physician Assistant
DX: Z53.21 Procedure and treatment not carried out due to patient leaving prior to being seen by health care provider (principal)
CPT/HCPCS: 36415; 80053; 80307; 80320; 81001; 81025; 82248; 83735; 84439; 84443; 85025; 99281; G0480